=== PATIENT | female | born 2000 | race Caucasian/White ===

== ENCOUNTER → 2023-12-06 14:55 | Outpatient (BNVA) | payer OTHER, SELFPAY | PROVIDERS: Referring Provider Family Medicine; Visit Provider Nurse Practitioner Women's Health | DX: N92.6 Irregular menstruation, unspecified (principal) | CPT/HCPCS: 84146; 84402; 84403 ==

== ENCOUNTER → 2023-12-25 11:21 | Outpatient (BNVA) | payer OTHER, SELFPAY | PROVIDERS: Visit Provider Nurse Practitioner Women's Health | DX: N92.6 Irregular menstruation, unspecified (principal) | CPT/HCPCS: 76856 ==

== ENCOUNTER 2024-01-10 16:00 | Outpatient (CLI) | payer OTHER, SELFPAY ==
--- NOTE | 2024-01-10 16:00 | MR_ITS ---
WS: [id number] MRI HEAD WITHOUT AND WITH GADOLINIUM ENHANCEMENT WITH PITUITARY PROTOCOL. TECHNIQUE: Sagittal T1, T2 axial, T2 axial FLAIR, axial susceptibility weighted imaging, axial diffus ion weighted images, and coronal T2 images were obtained. Pre and post-T1 axial and post T1 coronal i mages. ADC and FSPGR images. Pituitary protocol utilized. CLINICAL INFORMATION: R79.89 - Other specified abnormal findings of blood chemi... COMPARISON: None. FINDINGS: No evidence of restricted diffusion to suggest acute ischemia. No suspicious intracranial signal abno rmalities. Normal guerin-white differentiation. Incidental cerebellar tonsillar ectopia. Normal fourth ventricle. No hydrocephalus. No hemosiderin on the susceptibly weighted images. No evidence of suprasellar or intrasellar mass. No evidence of microadenoma on the dynamic pituitary imaging. Proximal 7th and 8th cranial nerves appear normal. Temporal lobes and hippocampal formations are normal in appearance. Normal optic chiasm and pituitary infundibulum. Normal dural venous sinuse s. MR/MR pituitary wo/w con* [id number] IMPRESSION: 1. No evidence of restricted diffusion to suggest acute ischemia. 2. No suspicious intracranial signal abnormalities. Normal guerin-white differen tiation. 3. Incidental cerebellar tonsillar ectopia. 4. Normal optic chiasm and pituitary infundibulum. 5. No evidence of intrasellar or suprasellar mass. No evidence of pituitary mi croadenoma.
[2024-01-10] MEDS: gadobenate dimeglumine 20 mL vial 12 ML IV (17:10)
== END 2024-01-10 16:03 | disposition home or self-care (01) ==
PROVIDERS: Visit Provider Nurse Practitioner Women's Health
DX: R79.89 Other specified abnormal findings of blood chemistry (principal); Q04.8 Other specified congenital malformations of brain
CPT/HCPCS: 70553

== ENCOUNTER → 2025-01-25 10:46 | Outpatient (BNVA) | payer OTHER, SELFPAY | PROVIDERS: Visit Provider Nurse Practitioner | DX: J02.9 Acute pharyngitis, unspecified (principal) | CPT/HCPCS: 87071; 87426; 87880 ==

== ENCOUNTER → 2025-02-06 12:39 | Outpatient (BNVA) | payer OTHER, SELFPAY | PROVIDERS: Visit Provider Nurse Practitioner Family | DX: J02.9 Acute pharyngitis, unspecified (principal) | CPT/HCPCS: 87070; 87880 ==